=== PATIENT | female | born 1995 | race Caucasian/White ===

== ENCOUNTER 2018-05-28 18:22 | Emergency (ER) | payer SELFPAY ==
[2018-05-28 18:54] VITALS: BP 144/75; PULSE 68; RESP 20; TEMP 37; O2SAT 99
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
[2018-05-28] MEDS: Omnipaque 350 MG/ML 100 ML BTL IJ (20:27)
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
--- NOTE | 2018-05-28 20:53 | ED.FU_ITS ---
Disposition Clinical Impression: Concussion Disposition: HOME Condition: Good Instructions: Concussion (ED) Additional Instructions: Follow up with your primary care provider if headaches continue within a week You can take 1000mg tylenol and 600mg ibuprofen every 6 hours for pain as needed if you have significant worsening of pain or weakness return to the emergency department Medical Decision Making - Radiology Data Radiology results: report reviewed, image reviewed Care Signed Out By:: Dr. Flood - Vital Signs Recent Vitals - 8H: Vital Signs - 8 hr 05/28/18 18:54 Temperature 98.6 F Pulse 68 Respiratory 20 Rate Blood Pressure 144/75 Pulse Oximetry 99 - Continuation of Care Continuation of Care Plan: PT's imaging negative, states still has mild headache, but no focal neuro deficits and no new pain elsewhere, suspect concussion. Will d/c and advised f/ u with pcp and return precautions given
[2018-05-29 06:34] VITALS: BP 144/75; PULSE 68; RESP 20; TEMP 37; O2SAT 99
== END 2018-05-28 21:12 | disposition home or self-care (01) ==
PROVIDERS: Emergency Provider Emergency Medicine; PCP Internal Medicine
DX: S06.0X0A Concussion without loss of consciousness, initial encounter (principal); Y04.8XXA Assault by other bodily force, initial encounter
CPT/HCPCS: 70498; 99285; 70450; 99284; J3490

== ENCOUNTER 2018-06-01 13:41 | Outpatient (REF) | payer BC, SELFPAY ==
[2018-06-01 19:25] LABS: Hemoglobin A1C 5.8 % (4.5-6.2)
[2018-06-01 19:34] LABS: Cholesterol 138 mg/dL (50-200); HDL Cholesterol 42 mg/dL (40-60); LDL CHOLESTEROL 84 mg/dL (<100); Triglyceride 118 mg/dL (30-150)
== END 2018-06-01 13:42 ==
LOC: NCHCN 13:41
PROVIDERS: PCP Internal Medicine; Visit Provider Nurse Practitioner Family
DX: E03.9 Hypothyroidism, unspecified (principal)
CPT/HCPCS: 80061; 83721; 83036; 84443

== ENCOUNTER 2018-07-19 11:31 | Outpatient (REF) | payer BC, SELFPAY ==
[2018-07-19 20:09] LABS: TSH 3.44 uIU/mL (0.358-3.74)
== END 2018-07-19 11:51 ==
LOC: NCHCN 11:31
PROVIDERS: PCP Internal Medicine; Visit Provider Nurse Practitioner Family
DX: H10.32 Unspecified acute conjunctivitis, left eye (principal); E03.9 Hypothyroidism, unspecified; L20.9 Atopic dermatitis, unspecified
CPT/HCPCS: 84443

== ENCOUNTER 2018-08-31 09:11 | Outpatient (REF) | payer SELFPAY ==
[2018-08-31 20:34] LABS: TSH 171.72 uIU/mL (0.358-3.74)
== END 2018-08-31 09:31 ==
LOC: NCHCN 09:11
PROVIDERS: PCP Internal Medicine; Visit Provider Nurse Practitioner Family
DX: E03.9 Hypothyroidism, unspecified (principal)
CPT/HCPCS: 84443

== ENCOUNTER 2018-10-11 19:07 | Outpatient (REF) | payer SELFPAY ==
[2018-10-11 20:00] LABS: TSH 11.92 uIU/mL (0.358-3.74)
== END 2018-10-11 19:27 ==
LOC: NCHCN 19:07
PROVIDERS: PCP Internal Medicine; Visit Provider Physician Assistant Medical
DX: E03.9 Hypothyroidism, unspecified (principal)
CPT/HCPCS: 84443

== ENCOUNTER 2019-01-03 12:33 | Outpatient (REF) | payer SELFPAY ==
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
[2019-01-03 20:03] LABS: TSH 99.77 uIU/mL (0.358-3.74)
[2019-01-03 21:00] LABS: Hemoglobin A1C 5.9 % (4.5-6.2)
[2019-01-03 23:14] LABS: HCG Qual (Serum) Negative
[2019-01-05 14:55] LABS: Chlamydia Result Negative; GC Result Negative; Specimen Description SEE COMMENTS
== END 2019-01-03 12:53 ==
LOC: NCHCN 12:33
PROVIDERS: PCP Internal Medicine; Visit Provider Nurse Practitioner Family
DX: Z12.4 Encounter for screening for malignant neoplasm of cervix (principal); Z11.51 Encounter for screening for human papillomavirus (HPV); E03.9 Hypothyroidism, unspecified; R73.01 Impaired fasting glucose; Z01.419 Encounter for gynecological examination (general) (routine) without abnormal findings
CPT/HCPCS: 87491; 87591; 88142; 83036; 84443; 84703; 87624

== ENCOUNTER 2019-06-06 10:42 | Outpatient (REF) | payer SELFPAY ==
[2019-06-06 20:02] LABS: TSH 0.04 uIU/mL (0.36-3.74)
== END 2019-06-06 11:02 ==
LOC: NCHCN 10:42
PROVIDERS: PCP Internal Medicine; Visit Provider Physician Assistant Medical
DX: E03.9 Hypothyroidism, unspecified (principal)
CPT/HCPCS: 84443

== ENCOUNTER 2020-10-10 18:24 | Outpatient (REF) | payer MEDICAID, SELFPAY ==
[2020-10-10 20:40] LABS: Hemoglobin A1C 5.6 % (<5.7)
[2020-10-10 21:40] LABS: FREE T4 0.34 ng/dL (0.76-1.46)
== END 2020-10-10 18:44 ==
LOC: NCHCN 18:24
PROVIDERS: PCP Internal Medicine; Visit Provider Nurse Practitioner Family
DX: E03.9 Hypothyroidism, unspecified (principal); R73.03 Prediabetes
CPT/HCPCS: 83036; 84439; 84443

== ENCOUNTER 2020-11-30 19:04 | Outpatient (REF) | payer MEDICAID, SELFPAY ==
[2020-11-30 19:48] LABS: TSH 0.82 uIU/mL (0.36-3.74)
== END 2020-11-30 19:05 | disposition home or self-care (01) ==
LOC: NCHCN 19:04
PROVIDERS: PCP Internal Medicine; Visit Provider Physician Assistant
DX: E03.9 Hypothyroidism, unspecified (principal)
CPT/HCPCS: 84443

== ENCOUNTER 2021-01-31 13:11 | Outpatient (REF) | payer MEDICAID, SELFPAY ==
[2021-02-01 01:25] LABS: COVID-19 RT-PCR UVMMC Result Negative (Negative)
== END 2021-01-31 13:12 | disposition home or self-care (01) ==
LOC: NCHCN 13:11
PROVIDERS: PCP Internal Medicine; Visit Provider Nurse Practitioner Family
DX: Z20.822 Contact with and (suspected) exposure to COVID-19 (principal)
CPT/HCPCS: U0003

== ENCOUNTER 2021-02-07 17:50 | Outpatient (REF) | payer MEDICAID, SELFPAY ==
[2021-02-08 10:39] LABS: COVID-19 RT-PCR UVMMC Result Negative (Negative)
== END 2021-02-07 17:51 | disposition home or self-care (01) ==
LOC: NCHCN 17:50
PROVIDERS: PCP Internal Medicine; Visit Provider Physician Assistant
DX: Z20.822 Contact with and (suspected) exposure to COVID-19 (principal)
CPT/HCPCS: U0003

== ENCOUNTER 2021-03-28 11:41 | Outpatient (REF) | payer MEDICAID, SELFPAY ==
[2021-03-29 13:53] LABS: COVID-19 RT-PCR UVMMC Result Negative (Negative)
== END 2021-03-28 11:42 | disposition home or self-care (01) ==
LOC: NCHCN 11:41
PROVIDERS: PCP Internal Medicine; Visit Provider Physician Assistant
DX: Z20.822 Contact with and (suspected) exposure to COVID-19 (principal); R06.02 Shortness of breath; R05 Cough
CPT/HCPCS: U0003

== ENCOUNTER 2023-07-20 12:28 | Outpatient (REF) | payer MEDICAID, SELFPAY ==
[2023-07-20 20:57] LABS: Anion Gap 9.9 mmol/L (3-11); BUN 17 mg/dL (7-18); CO2 26.1 mmol/L (21.0-32.0); Calcium 9.3 mg/dL (8.5-10.1); Chloride 102 mmol/L (98-107); Estimated GFR 79.19 (mL/min/1.73m2); Glucose 112 mg/dL (74-106); Potassium 4.2 mmol/L (3.5-5.1); Sodium 138 mmol/L (136-145); TSH (W/Ref FT4) 0.76 uIU/mL (0.36-3.74)
[2023-07-20 20:58] LABS: HCG Quant, Pregnancy < 1 mIU/mL (1-3)
== END 2023-07-20 12:29 | disposition home or self-care (01) ==
LOC: NCHCN 12:28
PROVIDERS: PCP Internal Medicine; Visit Provider Nurse Practitioner Family
DX: E03.9 Hypothyroidism, unspecified (principal); R73.03 Prediabetes; N92.5 Other specified irregular menstruation
CPT/HCPCS: 80048; 83036; 84443; 84702